=== PATIENT | male | born 1955 ===

== ENCOUNTER 2016-11-19 19:57 | Inpatient (IN) | payer MEDICARE ==
[2016-11-19] MEDS ORDERED: Ondansetron INJ* 2 MG/ML VIAL IV PRN (21:56)
[2016-11-19] MEDS ORDERED: Dextrose 50% Syringe 50 ML* 25 GM/50 ML SYRINGE IV PUSH PRN (21:56)
[2016-11-19] MEDS ORDERED: Ciprofloxacin 400MG IVPREMIX(* 400 MG/200 ML BAG IVPB SCH (22:00)
--- NOTE | 2016-11-19 22:28 | RAD ---
CLINICAL HISTORY: Abdominal pain COMPARISON: None TECHNIQUE: Multiple contiguous axial CT scans were obtained of the abdomen and pelvis, without intravenous contrast enhancement. Coronal and sagittal multiplanar reformations are submitted for review. Oral contrast was administered. FINDINGS: The study is limited by the lack of intravenous contrast. This limits evaluation of the solid organs and vasculature. LUNG BASES: The lung bases are clear. LIVER: The liver is normal in shape, size, contour, and attenuation. BILE DUCTS: There is no intrahepatic or extrahepatic biliary dilatation. GALLBLADDER: The gallbladder is normal, without pericholecystic inflammatory change. PANCREAS: The pancreas is normal, without mass or ductal dilatation. SPLEEN: Normal in size and appearance. UPPER GI TRACT: Evaluation of the gastrointestinal tract is limited by incomplete gastric distention. The upper GI tract is unremarkable. SMALL BOWEL AND MESENTERY: The small bowel is normal in contour, course, and caliber. There is no obstruction or dilatation. COLON: Oral contrast reaches the colon. There is extensive mucosal thickening of the descending and rectosigmoid colon. There is stranding of the pericolonic fat. ADRENALS: Normal bilaterally. KIDNEYS: The renal allograft is noted in the right hemipelvis. There is pelvic caliectasis of the allograft BLADDER: The bladder is markedly distended. PELVIC ORGANS: The prostate gland is normal. The seminal vesicles are symmetric. AORTA: There is calcific atherosclerotic disease of the abdominal aorta and its branches, without aneurysmal dilatation IVC: Unremarkable LYMPH NODES: There is no lymphadenopathy by size criteria. ABDOMINAL WALL: There is no evidence for abdominal wall hernia. BONES AND SOFT TISSUES: There are mild diffuse degenerative changes. OTHER: There is a small amount of ascites in the left paracolic gutter IMPRESSION: 1. EXTENSIVE MUCOSAL THICKENING OF THE DESCENDING AND RECTOSIGMOID COLON WITH PERICOLONIC INFLAMMATORY CHANGE IN THE TRACE AMOUNT OF ASCITES. THE APPEARANCE IS MOST CONSISTENT WITH COLITIS, INCLUDING INFECTIOUS AND INFECTIOUS INFLAMMATORY COLITIS. ISCHEMIC COLITIS IS ALSO WITHIN THE DIFFERENTIAL.. 2. STATUS POST RENAL ALLOGRAFT. THERE IS HYDRONEPHROSIS OF THE ALLOGRAFT.
[2016-11-19 23:18] LABS: Hematocrit 41 % (42-52); Hemoglobin 13.9 g/dl (14.0-18.0); Mean Corpuscular HGB Conc 34 g/dl (31-36); Mean Corpuscular Hemoglobin 30 pg (27-31); Mean Corpuscular Volume 88 fL (80-94); Mean Platelet Volume 9 um3 (7.4-10.4); Red Blood Count 4.65 10^6/ul (4.0-5.4); Red Cell Distribution Width 13 % (10.5-15); White Blood Count 15.9 10^3/ul (3.5-10.8)
[2016-11-19 23:20] LABS: Comments Flag Yes
[2016-11-19 23:21] LABS: ALT 41 U/L (7-52); AST 26 U/L (13-39); Alkaline Phosphatase 67 U/L (34-104); Amylase 35 U/L (29-103); Anion Gap 11 mmol/L (2-11); BUN/Creatinine Ratio 24.8 (8-20); Blood Urea Nitrogen 50 mg/dL (6-24); CO2 Carbon Dioxide 19 mmol/L (22-32); Chloride 102 mmol/L (101-111); EGFR African American 43.5 (>60); EGFR Non-African American 33.9 (>60); Globulin 2.5 g/dL (2-4); Glucose 313 mg/dL (70-100); Lipase < 10 U/L (11.0-82.0); Potassium 4.2 mmol/L (3.5-5.0); Sodium 132 mmol/L (133-145); Total Protein 6.5 g/dL (6.4-8.9)
[2016-11-19 23:28] LABS: Add Diff/Slide Review? Manual Diff Added
[2016-11-19 23:29] LABS: Immature Granulocytes 34 % (0-9); Neutrophil % 61 % (38-83); RBC Morphology Normal (Normal); Reactive Lymph % 1 % (0-6)
[2016-11-19] MEDS: metroNIDAZOLE IV 500 MG/100ML* 500 MG/100 ML BAG IVPB SCH (23:32)
[2016-11-20] MEDS: NS 0.9% 1000 ML* 1,000 ML IV SCH ×2 (00:14→11:15)
[2016-11-20 00:45] LABS: Urine Bacteria 1+ (Absent); Urine Bilirubin Negative (Negative); Urine Glucose 3+(>=500 mg/dL) (Negative); Urine Nitrite Negative (Negative)
[2016-11-20] MEDS: Insulin LISPRO* 1 UNITS UNIT SUBCUT SCH ×4 (00:49→17:36)
--- NOTE | 2016-11-20 01:54 | HP ---
HISTORY AND PHYSICAL: DATE OF ADMISSION: 11/19/16 PRIMARY CARE PROVIDER: Rosa Isela Delvalle NP ATTENDING PHYSICIAN WHILE IN THE HOSPITAL: Dr. Janice Chacon * (report dictated by Ilya Gonzales NP). CHIEF COMPLAINT: 1. Bright red blood per rectum. 2. Abdominal pain. HISTORY OF PRESENT ILLNESS: Mr. Villeda is a 61-year-old male patient, who carries a history of diabetes; anemia; hypertension; chronic kidney disease, stage 3; GERD; depression; hyperlipidemia. He was transferred from [facility] to our floor today with complaints of abdominal discomfort and bright red blood per the rectum. He states that this afternoon, he went to his primary job service specialist's office, who said he was noted to be doing well. He comes in today because he went around the center after that visit, he started getting abdominal discomfort. He went to the bathroom in the mall, he had a bowel movement; he got home and he started having bloody diarrhea. He had 1 episode at home, then he had another episode while in [facility]. He says the pain was mostly in his lower abdomen and it came on rather quickly and he also states that the pain got progressively worse. He states that he was concerned because of the discomfort and the fact that he is having bloody diarrhea, he had 2 pretty good size bloody bowel movements and he went to the emergency department at [facility] and he was evaluated. There was a concern there because they had no GI backup, so he was sent to [facility]. The patient denies having any abdominal pain yesterday. He says he has not had any chest pain, denies having any shortness of breath. There was abdominal discomfort from HPI. There was 1 episode of vomiting this morning after he ate breakfast. He denies having any lightheadedness. He denies currently feeling any chest pain or shortness of breath. He has really complained of abdominal discomfort. He says he does not feel like he is going to faint or pass out. Denies having any lightheadedness and he says that he has had about 2 bloody bowel movements. He says the last time he had a colonoscopy was about 3 to 4 years ago, which to his knowledge was not reported having any diverticulosis. He came here, was evaluated again in [facility], and we were asked for direct admission because of the lack of GI followup and a CAT scan had not been obtained at [facility]. PAST MEDICAL HISTORY: Significant for: 1. Diabetes. 2. Anemia. 3. Hypertension. 4. CKD. 5. GERD. 6. Depression. 7. Hyperlipidemia. PAST SURGICAL HISTORY: He has had a kidney transplant. MEDICATIONS: His home meds have conflicting list from what I can gather and the patient's sister who is going to hopefully go and get us an accurate list, but he is on: 1. Prograf, according to his job service specialist, 1.5 mg every 12 hours. 2. Simvastatin 10 mg at bedtime. 3. Timolol 1 drop both eyes daily. 4. Januvia 50 mg daily. 5. Cetirizine 10 mg daily. 6. Celexa 20 mg daily. 7. Aspirin 81 mg daily. 8. Glipizide 5 mg p.o. b.i.d. 9. Flomax 0.4 mg p.o. daily. 10. Prilosec 40 mg daily. The confliction is the [facility] ED has him on Prograf 5 mg p.o. b.i.d. and also his job service specialist has him on sirolimus 2 mg daily. ALLERGIES TO MEDICATIONS: Include no known drug allergies. FAMILY HISTORY: His mother had an [place] and stroke. Father had a history of CHF. SOCIAL HISTORY: He does not smoke. He does not drink. Surrogate decision maker is his sister. REVIEW OF SYSTEMS: There is no documented fever. He denied having any significant weight change. There was no double vision. He denies having any ear discharge. There is no rhinorrhea. There is no sore throat. No thyroid enlargement. Denies having any chest pain. There was no orthopnea, there was no nocturnal dyspnea. There was abdominal discomfort. There was 1 episode of nausea and vomiting and there has been bright red blood per rectum. Review of 14 systems completed, all others negative. PHYSICAL EXAMINATION GENERAL: At this time, Mr. Villeda is a 61-year-old male patient; he is sitting in the hospital bed, he does not appear to be in any acute distress. VITAL SIGNS: Reveal blood pressure 163/82, pulse 88, respirations 14, O2 sat 94 %, temperature 98.6. HEENT: Head is atraumatic and normocephalic. Eyes: EOMs are intact. Sclerae anicteric and not pale. Throat: Oral mucosa appears to be moist. No oropharyngeal erythema. NECK: Supple. LUNGS: Clear to auscultation bilaterally. No wheezes, rales, or rhonchi. HEART: Sounds S1, S2. Regular rate and rhythm. No murmurs, rubs, or gallops. ABDOMEN: Soft, it was distended. Bowel sounds were present. He is tender across the lower right and lower left quadrants. EXTREMITIES: Pulses were 2+ throughout. He is able to move all 4 extremities with 5/5 strength. NEUROLOGICAL: He is awake, he is alert, and he is oriented x3. His tongue is midline. Curb Builder were equal. He had no gross focal deficits. SKIN: Intact. LABORATORY DATA: From [facility] showed today WBC 12.8, RBC of 4.70, hemoglobin 14.0, hematocrit 40, platelet count 248. The glucose was 335, BUN 59, creatinine 2.3, sodium 132, potassium 5.3, chloride 97, bicarb 23. Total bili 0.8, AST 37, ALT 69, alk phos 106. Lactic acid 2.1. Old medical records were reviewed. ASSESSMENT AND PLAN: Mr. Villeda is a 61-year-old male patient with multiple medical problems coming into our service today from [facility] with complaints of abdominal pain and bright red blood per rectum. He will be admitted under inpatient status for: 1. Abdominal pain, bright red blood per rectum. At this point, I know he certainly has risk factors for ischemic colitis. He recently was also on antibiotics. The differential is broad here, it certainly could be a diverticular bleed, but there is pain. So, my plan at this point is to repeat his labs, we will get a CBC, CMP, another repeat lactate. In addition to this, we also will get blood cultures, amylase, and lipase. We will check a urine. CT has been done, I am waiting on that report and for the time being, depending on the CT finding, I may need to touch base with GI. I will leave the patient n.p.o. for the time being. I am going to give him Cipro, to give him Flagyl, and we will hydrate him with normal saline at 100 an hour and we will follow closely. 2. Diabetes. He will be on lispro sliding scale with q.6 hour coverage. 3. Anemia. Follow H and H appropriately and transfuse as needed. 4. Hypertension. In the setting of acute illness, we will monitor and I will hold off on antihypertensive for the time being. 5. Gastroesophageal reflux disease. We will continue with his PPI when he is able to take p.o. 6. Depression. Supportive care. 7. Hyperlipidemia. We will start p.o. meds when able. 8. History of renal transplant. Unfortunately, I do not have clear dosing on this patient and it is important. I did discuss with the sister who is going to be going home tonight, will plan on calling her back later with the doses. I have already touched base with pharmacy. The plan will be to if he is on Prograf, certainly give this sublingual and if there is mycophenolate as well, which I am assuming there might be, we can switch that to intravenous route and we will get him back on his medications as soon as possible and soon as I know accurate doses. 9. DVT prophylaxis. Because of the bleeding, he will be on SCDs. 10. Code status. Full code. 11. Fluids, electrolytes, and nutrition. He is n.p.o. TIME SPENT: On the admission was 70 minutes; greater than half the time spent face- to-face with the patient obtaining history and physical, other half time was spent going over the plan of care with the patient and implementing plan of care. I did discuss the plan of care with my attending physician, Dr. Chacon; she is in agreement. ILYA GONZALES NP CC: Rosa Isela Delvalle NP * [id number]/[facility] #: [id number] MTDD
--- NOTE | 2016-11-20 02:06 | PN ---
Progress Note - Progress Note Note: Family member called in his immunosupporessive meds - Sirolimus and Tacrolimus - per pharmacy these are not usually given together. We are able to convert Tacrolimus at 50% dose reduction sublingual, will order that now at 0.5 mg SL BID. Will need to clarify his medications in AM
[2016-11-20 02:31] LABS: Hematocrit 39 % (42-52); Hemoglobin 13.3 g/dl (14.0-18.0)
[2016-11-20] MEDS: Tacrolimus CAP(*) 0.5 MG SCH ×2 (02:44→08:33)
[2016-11-20 06:15] LABS: Hematocrit 38 % (42-52); Mean Corpuscular HGB Conc 35 g/dl (31-36); Mean Corpuscular Hemoglobin 30 pg (27-31); Mean Corpuscular Volume 87 fL (80-94); Mean Platelet Volume 9 um3 (7.4-10.4); Red Blood Count 4.34 10^6/ul (4.0-5.4); Red Cell Distribution Width 13 % (10.5-15); White Blood Count 14.5 10^3/ul (3.5-10.8)
[2016-11-20 06:34] LABS: Albumin 3.4 g/dL (3.2-5.2); BUN/Creatinine Ratio 22.2 (8-20); Calcium 8.6 mg/dL (8.6-10.3); EGFR African American 41.2 (>60); Globulin 2.4 g/dL (2-4); Total Bilirubin 0.6 mg/dL (0.2-1.0); Total Protein 5.8 g/dL (6.4-8.9)
[2016-11-20] MEDS: metroNIDAZOLE IV 500 MG/100ML* 500 MG/100 ML BAG IVPB SCH ×2 (08:32→15:53)
[2016-11-20] MEDS: Morphine INJ* 2 MG/ML 1 ML SYRINGE IV PRN ×2 (08:40→15:53)
--- NOTE | 2016-11-20 14:01 | PN ---
Subjective Date of Service: 11/20/16 Interval History: This is a 61 yo gentleman with DM, chronic anemia, HTN, stage III CKD, GERD, depression, HLD, and h/o renal transplant ~2 yrs ago on chronic immunosuppressive medications who was transferred from [facility] last night with c/o abd pain and bloody diarrhea. CT suggestive of colitis. Patient was empirically started on Cipro/Flagyl. He has remained NPO. Reports improvement in pain. No return of appetite, no nausea. No further BMs since admission Objective Active Medications: Dextrose (D50w Syringe 50 Ml*) 12.5 gm IV PUSH .FOR FS < 60 - SS PRN PRN Reason: FS < 60 Sodium Chloride (Ns 0.9% 1000 Ml*) 1,000 mls @ 100 mls/hr IV PER RATE [facility] Last Admin: 11/20/16 11:15 Dose: 100 mls/hr Metronidazole/Sodium Chloride (Flagyl 500 Mg Ivpb*) 500 mg in 100 mls @ 100 mls /hr IVPB Q8H [facility] Last Admin: 11/20/16 08:32 Dose: 100 mls/hr Ciprofloxacin/Dextrose (Cipro 400 Mg Ivpremix(*)) 400 mg in 200 mls @ 200 mls/ hr IVPB 2000 [facility] Insulin Human Lispro (Humalog*) 0 units SUBCUT Q6HR [facility] PRN Reason: Protocol Last Admin: 11/20/16 12:16 Dose: 2 units Morphine Sulfate (Morphine Inj (Syringe)*) 2 mg IV Q4H PRN PRN Reason: PAIN - MILD Last Admin: 11/20/16 08:40 Dose: 2 mg Ondansetron HCl (Zofran Inj*) 4 mg IV Q6H PRN PRN Reason: NAUSEA Tacrolimus (Prograf Cap(*)) 0.5 mg .SEE ORDER BID [facility] Last Admin: 11/20/16 08:33 Dose: 0.5 mg Vital Signs: Temp Pulse Resp BP Pulse Ox 99.1 F 87 16 124/61 96 11/20/16 11:31 11/20/16 11:31 11/20/16 11:31 11/20/16 11:31 11/20/16 11:31 Appearance: Mildly ill appearing but in NAD. Accompanied by his sister Neck: NL Appearance and Movements; NL JVP Respiratory: Symmetrical Chest Expansion and Respiratory Effort, Clear to Auscultation Cardiovascular: NL Sounds; No Murmurs; No JVD, RRR Abdominal: - - abd soft, BS present, TTP LLQ Extremities: No Edema Skin: No Rash or Ulcers Neurological: Alert and Oriented x 3 Result Diagrams: 11/20/16 05:41 11/20/16 05:41 Microbiology and Other Data: Microbiology 11/20/16 00:00 Stool Gross Appearance - Final Stool C. difficile DNA Amplification - Final 027 Presumptive NEGATIVE Toxigenic C.diff NEGATIVE Stool Lactoferrin - Final Diagnostic Imaging: CT abd/pelvis - bowel wall thickening of rectosigmoid and descending colon with pericolonic inflammatory change. S/p renal allograft with associated hydronephrosis. Assess/Plan/Problems-Billing Assessment: This is a 61 yo gentleman with DM, chronic anemia, HTN, stage III CKD, GERD, depression, HLD and h/o renal transplant maintained on immunosuppressive medications who was transferred from [facility] with blood diarrhea and abd pain with evidence of acute colitis. - Patient Problems (1) Colitis Comment: Likely infectious Ischemic less likely with nl lactic acid and improving pain C diff neg Cont Cipro/Flagyl Advance to clear liquid diet (2) Diabetes Comment: NIDDM Cont to hold oral hypoglycemics and administer SS Humalog while oral intake is limited (3) Hydronephrosis Comment: Hydronephrosis of renal allograft present on initial CT Discussed findings with Dr Almazan who suggested that the hydro was likely due to his distended bladder as this can be a common finding He suggested repeating a renal US tomorrow now that the Cotter is in place and if persistent attempt to compare to old imaging Will closely follow renal fxn (4) Urinary retention Comment: Enlarged bladder noted on initial CT Cotter now in place, 650 ml returned h/o BPH Will attempt to remove Cotter tomorrow following repeat renal US to assess for persistent retention (5) H/O kidney transplant Comment: ~2yrs ago in [place] Attempting to clarify his immune suppressive medication, although it is not filled through a local pharmacy Per pt, he takes both tacrolimus and sirolimus which apparently not a recommended combination, will attempt to obtain med list from carpenter general or transplant specialist Cont tacrolimus at this time (6) CKD (chronic kidney disease) Comment: Stage III Cr appears near baseline (7) HTN (hypertension) Comment: Normotensive No home antihypertensives listed Cont to monitor (8) Chronic anemia Comment: Normocytic Anemia stable with Hgb ~13 g/dl (9) GERD (gastroesophageal reflux disease) (10) Depression (11) HLD (hyperlipidemia) (12) Full code status (13) DVT prophylaxis Comment: SCDs Med prophylaxis contraindicated with acute bleeding Status and Disposition: Inpatient. Anticipate additional 2-3 d LOS
[2016-11-20] MEDS: Ciprofloxacin 400MG IVPREMIX(* 400 MG/200 ML BAG IVPB SCH (20:07)
[2016-11-20] MEDS: Tamsulosin CAP* 0.4 MG PO SCH (20:09)
[2016-11-20] MEDS: Tacrolimus CAP(*) 1 MG PO SCH (20:20)
[2016-11-20] MEDS ORDERED: Insulin LISPRO* 1 UNITS UNIT SUBCUT ONE (23:00)
[2016-11-21] MEDS: NS 0.9% 1000 ML* 1,000 ML IV SCH (01:15)
[2016-11-21] MEDS: metroNIDAZOLE IV 500 MG/100ML* 500 MG/100 ML BAG IVPB SCH ×3 (02:20→16:19)
[2016-11-21] MEDS ORDERED: Insulin LISPRO* 1 UNITS UNIT SUBCUT ONE (08:42)
[2016-11-21] MEDS: Tacrolimus CAP(*) 1 MG PO SCH ×2 (08:45→19:57)
[2016-11-21] MEDS: Insulin LISPRO* 1 UNITS UNIT SUBCUT SCH ×5 (08:48→21:38)
[2016-11-21 09:23] LABS: Hematocrit 34 % (42-52); Hemoglobin 11.6 g/dl (14.0-18.0); Mean Corpuscular HGB Conc 34 g/dl (31-36); Mean Corpuscular Hemoglobin 30 pg (27-31); Mean Corpuscular Volume 89 fL (80-94); Mean Platelet Volume 8 um3 (7.4-10.4); Red Blood Count 3.85 10^6/ul (4.0-5.4); Red Cell Distribution Width 14 % (10.5-15); White Blood Count 9.7 10^3/ul (3.5-10.8)
[2016-11-21 09:32] LABS: BUN/Creatinine Ratio 16.9 (8-20); Calcium 8.2 mg/dL (8.6-10.3); EGFR Non-African American 31.9 (>60)
[2016-11-21] MEDS: Morphine INJ* 2 MG/ML 1 ML SYRINGE IV PRN ×2 (09:34→21:39)
[2016-11-21] MEDS: SIROLIMUS 1 MG PO SCH (10:33)
--- NOTE | 2016-11-21 11:26 | PN ---
Subjective Date of Service: 11/21/16 Interval History: Patient reports some loose stools. No further blood. Some abd pain this am, but relieved with morphine. No n/v. Tolerating clear liquids. Objective Active Medications: Dextrose (D50w Syringe 50 Ml*) 12.5 gm IV PUSH .FOR FS < 60 - SS PRN PRN Reason: FS < 60 Sodium Chloride (Ns 0.9% 1000 Ml*) 1,000 mls @ 100 mls/hr IV PER RATE [facility] Last Admin: 11/21/16 01:15 Dose: 100 mls/hr Metronidazole/Sodium Chloride (Flagyl 500 Mg Ivpb*) 500 mg in 100 mls @ 100 mls /hr IVPB Q8H [facility] Last Admin: 11/21/16 08:46 Dose: 100 mls/hr Ciprofloxacin/Dextrose (Cipro 400 Mg Ivpremix(*)) 400 mg in 200 mls @ 200 mls/ hr IVPB 2000 [facility] Last Admin: 11/20/16 20:07 Dose: 200 mls/hr Insulin Human Lispro (Humalog*) 0 units SUBCUT ACHS [facility] PRN Reason: Protocol Last Admin: 11/21/16 08:48 Dose: 2 units Morphine Sulfate (Morphine Inj (Syringe)*) 2 mg IV Q4H PRN PRN Reason: PAIN - MILD Last Admin: 11/21/16 09:34 Dose: 2 mg Pto: Sirolimus [ Rapamune] 1 Mg Tablet 2 tab PO DAILY [facility] Last Admin: 11/21/16 10:33 Dose: Not Given Ondansetron HCl (Zofran Inj*) 4 mg IV Q6H PRN PRN Reason: NAUSEA Tacrolimus (Prograf Cap(*)) 1 mg PO BID [facility] Last Admin: 11/21/16 08:45 Dose: 1 mg Tamsulosin HCl (Flomax Cap*) 0.4 mg PO BEDTIME [facility] Last Admin: 11/20/16 20:09 Dose: 0.4 mg Vital Signs: Temp Pulse Resp BP Pulse Ox 98.7 F 87 14 147/65 94 11/21/16 07:34 11/21/16 07:34 11/21/16 10:33 11/21/16 07:34 11/21/16 07:34 Oxygen Devices in Use Now: None Appearance: Fatigued appearing, but in NAD Respiratory: Symmetrical Chest Expansion and Respiratory Effort, Clear to Auscultation Cardiovascular: NL Sounds; No Murmurs; No JVD, RRR Abdominal: - - abd soft with BS present, TTP LLQ Extremities: No Edema Skin: No Rash or Ulcers Neurological: Alert and Oriented x 3 Result Diagrams: 11/21/16 08:27 11/21/16 08:27 Microbiology and Other Data: Microbiology 11/20/16 00:00 Stool Gross Appearance - Final Stool C. difficile DNA Amplification - Final 027 Presumptive NEGATIVE Toxigenic C.diff NEGATIVE Stool Lactoferrin - Final Diagnostic Imaging: CT abd/pelvis - bowel wall thickening of rectosigmoid and descending colon with pericolonic inflammatory change. S/p renal allograft with associated hydronephrosis. Assess/Plan/Problems-Billing Assessment: This is a 61 yo gentleman with DM, chronic anemia, HTN, stage III CKD, GERD, depression, HLD and h/o renal transplant maintained on immunosuppressive medications who was transferred from [facility] with blood diarrhea and abd pain with evidence of acute colitis. - Patient Problems (1) Colitis Comment: Likely infectious Ischemic less likely with nl lactic acid and improving pain C diff neg Clinically improving Cont Cipro/Flagyl Advance to soft diet (2) Diabetes Comment: NIDDM HgbA1c 7.1% Cont to hold oral hypoglycemics and administer SS Humalog while oral intake is limited (3) Hydronephrosis Comment: Hydronephrosis of renal allograft present on initial CT Discussed findings with Dr Almazan who suggested that the hydro was likely due to his distended bladder as this can be a common finding He suggested repeating a renal US now that the Cotter is in place and if persistent attempt to compare to old imaging Will closely follow renal fxn Repeat renal US is pending for later today (4) Urinary retention Comment: Enlarged bladder noted on initial CT Cotter now in place, 650 ml returned h/o BPH Will attempt to remove Cotter following repeat renal US to assess for persistent retention (5) H/O kidney transplant Comment: ~2yrs ago in [place] Attempting to clarify his immune suppressive medication, although it is not filled through a local pharmacy Confirmed with pt's marketing proposal coordinator that he takes both tacrolimus and sirolimus which have been continued at this time (6) CKD (chronic kidney disease) Comment: Stage III Cr appears near baseline (7) HTN (hypertension) Comment: Normotensive No home antihypertensives listed Cont to monitor (8) Chronic anemia Comment: Normocytic Anemia stable with Hgb ~13 g/dl (9) GERD (gastroesophageal reflux disease) (10) Depression (11) HLD (hyperlipidemia) (12) Full code status (13) DVT prophylaxis Comment: SCDs Med prophylaxis contraindicated with acute bleeding Status and Disposition: Inpatient. Anticipate additional 1-2 d LOS
--- NOTE | 2016-11-21 14:48 | RAD ---
INDICATION: Follow-up of hydronephrosis of a right renal allograft. COMPARISON: CT abdomen pelvis November 19, 2016 TECHNIQUE: Real-time ultrasound examination of the right lower quadrant renal transplant including grayscale and Doppler color flow analysis. The patient's picayune kidneys were not imaged. FINDINGS: There is fullness of the right renal hilum but no noman hydronephrosis within the right allograft collecting system. The right renal cortex exhibits circumferential thickness of approximately 1 cm with a large fatty hilum. There is a small amount of free fluid surrounding the renal allograft. IMPRESSION: Relative to the previous CT examination there appears to be a reduction in the degree of fullness of the transplant kidney renal hilum and there is no noman hydronephrosis of the intrarenal collecting system. There is trace ascites surrounding the renal allograft.
[2016-11-21] MEDS: Tamsulosin CAP* 0.4 MG PO SCH (19:56)
[2016-11-21] MEDS: Calcium Carbonate CHEW TAB* 500 MG (TUMS) PO PRN (19:56)
[2016-11-21] MEDS: Ciprofloxacin 400MG IVPREMIX(* 400 MG/200 ML BAG IVPB SCH (19:56)
[2016-11-21] MEDS: Timolol 0.5% OPTH.SOL* BTL BOTH EYES SCH (20:35)
[2016-11-22] MEDS: metroNIDAZOLE IV 500 MG/100ML* 500 MG/100 ML BAG IVPB SCH ×2 (01:13→07:25)
[2016-11-22 07:36] VITALS: BP 149/70
[2016-11-22 08:01] LABS: Hematocrit 34 % (42-52); Hemoglobin 11.8 g/dl (14.0-18.0); Mean Corpuscular HGB Conc 35 g/dl (31-36); Mean Corpuscular Hemoglobin 31 pg (27-31); Mean Corpuscular Volume 89 fL (80-94); Mean Platelet Volume 8 um3 (7.4-10.4); Red Blood Count 3.84 10^6/ul (4.0-5.4); Red Cell Distribution Width 14 % (10.5-15); White Blood Count 8.3 10^3/ul (3.5-10.8)
[2016-11-22 08:13] LABS: BUN/Creatinine Ratio 15.8 (8-20); Calcium 8.5 mg/dL (8.6-10.3); EGFR African American 48.5 (>60); EGFR Non-African American 37.7 (>60)
[2016-11-22] MEDS: Timolol 0.5% OPTH.SOL* BTL BOTH EYES SCH (08:39)
[2016-11-22] MEDS: SIROLIMUS 1 MG PO SCH (08:40)
[2016-11-22] MEDS: Insulin LISPRO* 1 UNITS UNIT SUBCUT SCH ×2 (08:41→12:05)
[2016-11-22] MEDS: Tacrolimus CAP(*) 1 MG PO SCH (08:43)
[2016-11-22 11:26] LABS: Magnesium 1.6 mg/dL (1.9-2.7)
[2016-11-22] MEDS ORDERED: Magnesium Sulfate 2 GM IV* 2 GM/50 ML BAG IVPB ONE (11:45)
[2016-11-22] MEDS: Calcium Carbonate CHEW TAB* 500 MG (TUMS) PO PRN (12:10)
--- NOTE | 2016-11-22 22:25 | DS ---
DISCHARGE SUMMARY: DATE OF ADMISSION: 11/19/16 DATE OF DISCHARGE: 11/22/16 PRIMARY CARE PROVIDER: Not listed. UROLOGY TO BE REFERRED TO: Dr. Alamzan. DISCHARGING PROVIDER: FARTUN Valle SUPERVISING PHYSICIAN: DO Beatriz Marie (DICTATED BY FARTUN VALLE) PRIMARY DISCHARGE DIAGNOSES: 1. Infectious colitis - C. diff negative, improved with Cipro and Flagyl. 2. Lower gastrointestinal bleed secondary to colitis. 3. Acute urinary retention with hydronephrosis - resolved with Cotter catheter in place, the patient is discharged with Cotter and referral to Urology. 4. Frequent PVCs with ventricular quadrigeminy - recommended starting beta- duke. 5. Hypomagnesemia - replaced IV. SECONDARY DISCHARGE DIAGNOSES: 1. Hpy-qlzpslo-xappavwpy diabetes with hemoglobin A1c of 7.1%. 2. History of kidney transplant, followed by transplant clinic out [facility] on chronic immunosuppressive medications. 3. Stage 3 chronic kidney disease, stage 3 without acute exacerbation. 4. Hypertension. 5. Chronic anemia with stable hemoglobin of approximately 13 g/dL. 6. Gastroesophageal reflux disease. 7. Depression. 8. Hyperlipidemia. DISCHARGE MEDICATIONS: 1. Aspirin 81 mg p.o. daily. 2. Cetirizine 10 mg p.o. daily. 3. Cipro 500 mg p.o. b.i.d. x7 days. 4. Celexa 20 mg p.o. daily. 5. Metoprolol tartrate 25 mg p.o. twice daily. 6. Flagyl 500 mg p.o. t.i.d. x7 days. 7. Omeprazole 40 mg p.o. daily. 8. Simvastatin 10 mg p.o. at bedtime. 9. Sirolimus 2 mg p.o. daily. 10. Januvia 25 mg p.o. daily. 11. Tacrolimus 1 mg p.o. twice daily. 12. Tamsulosin 0.4 mg p.o. daily. 13. Timolol 0.5% ophthalmic solution 1 drop in both eyes daily. 14. Glipizide 5 mg p.o. twice daily. MEDICATION CHANGES: 1. Cipro x7 days. 2. Flagyl x7 days. 3. Start metoprolol. HOSPITAL IMAGIN. CT of the abdomen and pelvis, 11/19/16, demonstrates extensive mucosal thickening of the descending and rectosigmoid colon with pericolonic inflammatory change and a trace amount of ascites, appearance most consistent with colitis. Status post renal allograft with hydronephrosis of allograft in the right hemipelvis. 2. Renal ultrasound, 11/21/16, demonstrates reduction in the degree of fullness in the transplanted kidney without noman hydronephrosis. HOSPITAL COURSE: This is 61-year-old gentleman with a history of renal transplant performed approximately 2 years ago on chronic immunosuppressive mediations as well as ish-[id number]-mbxamfmkl diabetes, hypertension, stage 3 chronic kidney disease, GERD, depression, hyperlipidemia and chronic anemia, who was transferred from [facility] with complaints of bloody diarrhea and abdominal pain. The patient had a sudden onset of symptoms earlier in the day of admission and had associated 1 episode of vomiting. When he reached our emergency department, labs demonstrated a moderate leukocytosis with a white blood count of 15,900. Chemistry panel demonstrated mild hyponatremia with a sodium of 132, BUN was elevated at 50 and a creatinine of 2.02. The only other creatinine available for reference was from October 2014, which was 2.14. I assume that must have been around the time of transplant, but unsure if it was pre or post procedure. The patient was moderately febrile, spiking a fever of 101.3 degrees Fahrenheit shortly after admission, but remained normotensive and without significant tachycardia. CT of the abdomen and pelvis was performed, which demonstrated signs consistent with colitis of the descending and rectosigmoid colon. Its presentation appeared to be consistent with an infectious colitis. His pain was moderate and lactic acid was within normal limits making an ischemic colitis less likely. The patient was empirically treated with Cipro and Flagyl. C. diff testing was performed, which was negative. The patient demonstrated significant clinical improvement with Cipro and Flagyl. The gross blood present in his diarrhea eventually resolved and the frequency of his loose stools improved as well. He was able to tolerate a soft diet without nausea or abdominal pain at the time of discharge. Also of note, the patient had a Cotter catheter placed in the emergency department, which returned 650 mL of urine. His urinalysis was unremarkable. Initial CT scan also demonstrated hydronephrosis of his renal allograft. Called and spoke with urologist, Dr. Almazan, regarding these findings and he suggested that allografts are especially susceptible to hydronephrosis when the bladder is distended and suggested repeating a renal ultrasound after a Cotter had been in place for approximately 48 hours. This was completed and did demonstrate near resolution of the hydronephrosis. Cotter catheter was subsequently removed and the patient underwent postvoid residual testing and unfortunately, he still had nearly 300 mL present in his bladder. Cotter catheter was subsequently replaced and patient was discharged with Cotter in place with a leg bag. The patient denies any history of urinary retention, although he is treated for BPH with Flomax, which was continued. Also of note, the patient had frequent PVCs and quadrigeminy appreciated on telemetry. He was mildly hypomagnesemic, which was corrected with IV replacement. He was also mildly hypertensive during his hospital stay and was subsequently discharged with a beta-duke. DISPOSITION: The patient is being discharged to home. He lives alone in an apartment with his sister nearby for support. A Cotter catheter is in place at the time of discharge. He requires 7 days of additional oral antibiotics as described above as well as close followup with his primary care provider and Urology. FARTUN VALLE CC: Dr. Almazan* [id number]/[facility] #: [id number] HARVE[place]
== END 2016-11-22 15:20 | disposition home or self-care (01) | DRG 392 ==
LOC: MEDTELE 21:10
PROVIDERS: ADMIT Pediatrics; ATTEND Hospitalist
DX: A09 Infectious gastroenteritis and colitis, unspecified (principal); E11.22 Type 2 diabetes mellitus with diabetic chronic kidney disease; K92.2 Gastrointestinal hemorrhage, unspecified; N13.30 Unspecified hydronephrosis; N18.3 Chronic kidney disease, stage 3 (moderate); Z94.0 Kidney transplant status; R33.8 Other retention of urine; I49.3 Ventricular premature depolarization; E83.42 Hypomagnesemia; I12.9 Hypertensive chronic kidney disease with stage 1 through stage 4 chronic kidney disease, or unspecified chronic kidney disease; D53.9 Nutritional anemia, unspecified; K21.9 Gastro-esophageal reflux disease without esophagitis; E78.5 Hyperlipidemia, unspecified; F32.9 Major depressive disorder, single episode, unspecified; N40.1 Benign prostatic hyperplasia with lower urinary tract symptoms; Z79.82 Long term (current) use of aspirin; Z79.84 Long term (current) use of oral hypoglycemic drugs; Z79.899 Other long term (current) drug therapy; Z82.3 Family history of stroke; Z82.49 Family history of ischemic heart disease and other diseases of the circulatory system
CPT/HCPCS: 36415; 74176; 76775; 80048; 80053; 81003; 81015; 82150; 83036; 83605; 83630; 83690; 83735; 85014; 85018; 85025; 86850; 86900; 86901; 87040; 87045; 87046; 87086; 87493; 87899; A9270-GY; J0744; J2270; J2405; J7507